=== PATIENT | male | born 1975 | race Caucasian/White ===

== ENCOUNTER → 2024-03-28 10:31 | Outpatient (REF) | payer BC, SELFPAY | LOC: RCS 10:31 | PROVIDERS: ATTENDING PHYSICIAN Physician Assistant Medical | DX: I10 Essential (primary) hypertension (principal); R07.89 Other chest pain | CPT/HCPCS: 93017; 71046 ==

== ENCOUNTER → 2024-09-08 13:57 | Outpatient (REF) | payer BC, SELFPAY | LOC: RAD 13:57 | PROVIDERS: ATTENDING PHYSICIAN Physician Assistant Medical | DX: R06.3 Periodic breathing (principal) | CPT/HCPCS: 71046 ==

== ENCOUNTER → 2025-01-03 10:19 | Outpatient (REF) | payer BC, SELFPAY | LOC: RAD 10:19 | PROVIDERS: ATTENDING PHYSICIAN Student in an Organized Health Care Education/Training Program | DX: R05.1 Acute cough (principal) | CPT/HCPCS: 71046 ==

== ENCOUNTER → 2025-02-07 09:05 | Outpatient (REF) | payer BC, SELFPAY | LOC: RAD 09:05 | PROVIDERS: ATTENDING PHYSICIAN Family Medicine | DX: R05.1 Acute cough (principal) | CPT/HCPCS: 71046 ==